=== PATIENT | female | born 1945 | race Caucasian/White ===

== ENCOUNTER 2016-06-09 06:55 | Day surgery (SDC) | payer MEDICARE ==
[~2016-06-09] VITALS: Ht 162.6 cm; Wt 76.7 kg
--- NOTE | 2016-07-13 10:33 | OR ---
ADMIT: 06/09/2016 RM/LOC: [facility] MR#: [id number] [address] JORGE SHANE [place] [address] [place] [id number] Operative/Delivery Room Report SEX: F AGE: 71 : 1945 SURGERY DATE: 06/09/2016 SURGEON: Anish Montalvo MD PREOPERATIVE DIAGNOSIS: Right-sided breast cancer. POSTOPERATIVE DIAGNOSIS: Right-sided breast cancer. PROCEDURE PERFORMED: 1. Injection of Lymphazurin for sentinel node identification. 2. Right-sided needle local lumpectomy, upper outer quadrant. 3. [place] node biopsy. ANESTHESIA: General endotracheal with addition of Marcaine into the wounds postprocedure. ESTIMATED BLOOD LOSS: Less than 20 mL. DESCRIPTION OF PROCEDURE: After appropriate informed consent was obtained, the patient was brought to the operating room. General endotracheal anesthesia was induced. The patient's right breast was injected with 3 mL of Lymphazurin in the periareolar position. Her right breast and axilla were then prepped and draped in a sterile fashion. I used a gamma probe to scan her right axilla, really did not have much for a signal in the right axilla from the gamma probe. Since her tumor was in the upper outer quadrant, very near the axilla, I made an incision to do the lumpectomy and actually performed a lumpectomy around the needle and a wire in the upper outer quadrant of her right breast, took a generous specimen around the needle and around the wire and took this all the way down the chest wall fascia and excised it off the chest wall and handed off the specimen and sent it to Radiology to confirm that we had the area of interest. I then scanned in the axilla since I was very close to the axillary contents through the lumpectomy incision. Still, there really was no signal in the axilla. I could see the blue lymphatics going directly into a couple of lymph nodes, so I just kind of picked out the 2 or 3 lymph nodes that appeared to be near those lymphatics or where the lymphatics were leading into. I opened up the axillary fat and did not identify any other lymph nodes, it appeared blue and none of the lymph nodes had any signal in them. So, I sent those several lymph nodes as my sentinel lymph node specimen. The wound was then copiously irrigated out with ADMIT: 06/09/2016 RM/LOC: [facility] MR#: [id number] [address] SHANE PATEL [address] [place] [address] Operative/Delivery Room Report SEX: F AGE: 71 : 1945 warm saline. There was little bit of thickness on the medial aspect of lumpectomy cavity, so I excised the additional margin on that medial aspect of lumpectomy just to make sure that if there was cancer nearby, that I get clear margins there. The wound was then inspected again, everything appeared hemostatic. The wound was then injected with Marcaine and closed with 3-0 Vicryl in the dermal layer and running 4-0 Monocryl in the subcuticular layer. Sterile dressings were then applied. The patient tolerated the procedure well and was taken to the recovery room in stable condition. Anish Montalvo MD/ aleida JOB #: [id number] CC: Anish Montalvo MD, Attending Physician Bro Toscano MD, Family Physician MD Bro Shultz MD
== END 2016-06-09 13:50 | disposition home or self-care (01) ==
LOC: SSS 06:55
PROC: 07B50ZX Excision of Right Axillary Lymphatic, Open Approach, Diagnostic (ICD-10-PCS; principal; 2016-06-09)
PROC: 0HBT0ZZ Excision of Right Breast, Open Approach (ICD-10-PCS; principal; 2016-06-09)
DX: C50.411 Malignant neoplasm of upper-outer quadrant of right female breast (principal); R59.0 Localized enlarged lymph nodes; I10 Essential (primary) hypertension; K21.9 Gastro-esophageal reflux disease without esophagitis; Z98.890 Other specified postprocedural states; Z79.899 Other long term (current) drug therapy; Z87.891 Personal history of nicotine dependence